=== PATIENT | female | born 1960 | race Caucasian/White ===

== ENCOUNTER 2017-01-11 09:51 | Observation (INO) | payer OTHER ==
[2017-01-11] VITALS (10 sets, daily range): BP systolic 108–154; BP diastolic 55–85; PULSE 43–69; RESP 16–20; TEMP 98.2–98.5; O2SAT 96–99
[~2017-01-11] VITALS: Ht 162.6 cm; Wt 79.0 kg
[~2017-01-11 09:51] MED LIST: BACT800T5 PO; CLEO300C2 PO; LIPI10TA PO
--- NOTE | 2017-01-11 10:03 | PD ---
HPI Chief Complaint: chest pain Time Seen by Provider: 10:03 Travel History International Travel<30 days: No Contact w/Intl Traveler<30days: No Traveled to known affect area: No History of Present Illness HPI 56-year-old female came to the emergency room with sudden onset chest pain while she was at work. Patient describes this pain as a heavy sensation on her chest with numbness going down her left arm. She says she's never had this kind of pain before. When it started it was 9 out of 10 that lasted for about 20 minutes. She took 1 baby aspirin that she had in her purse. No associated shortness of breath, diaphoresis or lightheadedness. Patient is a smoker and has been a smoker for many years. She also has history of high cholesterol and taking medications for that. She has never had a stress test in the past. Her grandfather and maternal and both had heart attack at the age of 40s to 50s. Currently patient says her pain is 1 out of 10. No signs of stable. No aggravating or relieving factors identified. [facility]LY [facility] Past Medical History Narrative Medical List of her past medical, surgical, social and family history is reviewed from the nursing note. Cancer: No Cardiovascular Problems: Yes (HIGH CHOLESTEROL) High Cholesterol: Yes Diabetes: No Glaucoma: No Hepatitis: No Hiatal Hernia: No Hypertension: No Thyroid Disease: No Past Surgical History Gynecologic Surgery: Yes (C SECTION X2, D&C) Hysterectomy: Yes Pacemaker: No Other Surgery: Yes Social History Alcohol Use: Yes (OCCAS) Tobacco Use: Yes (QUIT 02/21/09) Substance Use: No Allergies-Medications (Allergen,Severity, Reaction): Coded Allergies: latex (Unverified Allergy, Severe, DYSPNEA, SKIN BREAKDOWN, 10/05/16) Comments List of her allergies reviewed from the nursing note. Reported Meds & Prescriptions Reported Meds & Active Scripts Active Reported Atorvastatin (Atorvastatin Calcium) 10 Mg Tab 10 Mg PO HS Celexa (Citalopram Hydrobromide) 10 Mg Tab 10 Mg PO DAILY Narrative Medication List of her home medications reviewed from the nursing note. Review of Systems Except as stated in HPI: all other systems reviewed are Neg Cardiovascular: Positive: Chest Pain or Discomfort Physical Exam Narrative GENERAL: Awake, alert, anxious SKIN: Focused skin assessment warm/dry. HEAD: Atraumatic. Normocephalic. EYES: Pupils equal and round. No scleral icterus. No injection or drainage. ENT: No nasal bleeding or discharge. Mucous membranes pink and moist. NECK: Trachea midline. No JVD. CARDIOVASCULAR: Regular rate and rhythm. No murmur appreciated. RESPIRATORY: No accessory muscle use. Clear to auscultation. Breath sounds equal bilaterally. GASTROINTESTINAL: Abdomen soft, non-tender, nondistended. Hepatic and splenic margins not palpable. MUSCULOSKELETAL: No obvious deformities. No clubbing. No cyanosis. No edema. NEUROLOGICAL: Awake and alert. No obvious cranial nerve deficits. Motor grossly within normal limits. Normal speech. PSYCHIATRIC: Appropriate mood and affect; insight and judgment normal. Data Data Last Documented VS Orders Orders Electrocardiogram (01/11/17 10:24) Basic Metabolic Panel (Bmp) (01/11/17 10:24) Ckmb (Isoenzyme) Profile (01/11/17 10:24) Complete Blood Count With Diff (01/11/17 10:24) Magnesium (Mg) (01/11/17 10:24) Prothrombin Time / Inr (Pt) (01/11/17 10:24) Act Partial Throm Time (Ptt) (01/11/17 10:24) Troponin I (01/11/17 10:24) Chest, Single Ap (01/11/17 10:24) Ecg Monitoring (01/11/17 10:24) Bilateral Bp Monitoring (01/11/17 10:24) Iv Access Insert/Monitor (01/11/17 10:24) Oximetry (01/11/17 10:24) Oxygen Administration (01/11/17 10:24) Aspirin Chew (Aspirin Chew) (01/11/17 10:30) Sodium Chloride 0.9% Flush (Ns Flush) (01/11/17 10:30) D-Dimer (01/11/17 10:24) Admit Order (Ed Use Only) (01/11/17 11:32) Labs Laboratory Tests Test 01/11/17 10:35 White Blood Count 8.5 TH/MM3 Red Blood Count 4.67 MIL/MM3 Hemoglobin 14.1 GM/DL Hematocrit 41.3 % Mean Corpuscular Volume 88.3 FL Mean Corpuscular Hemoglobin 30.1 PG Mean Corpuscular Hemoglobin Concent 34.1 % Red Cell Distribution Width 13.9 % Platelet Count 223 TH/MM3 Mean Platelet Volume 10.5 FL Neutrophils (%) (Auto) 54.0 % Lymphocytes (%) (Auto) 39.3 % Monocytes (%) (Auto) 4.9 % Eosinophils (%) (Auto) 1.3 % Basophils (%) (Auto) 0.5 % Neutrophils # (Auto) 4.6 TH/MM3 Lymphocytes # (Auto) 3.3 TH/MM3 Monocytes # (Auto) 0.4 TH/MM3 Eosinophils # (Auto) 0.1 TH/MM3 Basophils # (Auto) 0.0 TH/MM3 CBC Comment DIFF FINAL Differential Comment Prothrombin Time 10.5 SEC Prothromb Time International Ratio 1.0 RATIO Activated Partial Thromboplast Time 27.8 SEC D-Dimer Quantitative (PE/DVT) 0.31 MG/L FEU Blood Urea Nitrogen 8 MG/DL Creatinine 0.76 MG/DL Random Glucose 107 MG/DL Calcium Level 8.9 MG/DL Magnesium Level 2.1 MG/DL Sodium Level 138 MEQ/L Potassium Level 3.7 MEQ/L Chloride Level 109 MEQ/L Carbon Dioxide Level 20.7 MEQ/L Anion Gap 8 MEQ/L Estimat Glomerular Filtration Rate 79 ML/MIN Total Creatine Kinase 76 U/L Troponin I LESS THAN 0.02 NG/ML MDM Medical Decision Making Medical Screen Exam Complete: Yes Emergency Medical Condition: Yes Medical Record Reviewed: Yes Interpretation(s) Twelve-lead EKG was reviewed by me. Normal sinus rhythm, normal axis, nonspecific ST-T wave changes, bradycardia. Heart rate of 56 bpm. Differential Diagnosis ACS, non-STEMI, PE Narrative Course 11:36 AM blood test results of back and within acceptable limits. Given her risk factors and age I would like to admit her to the chest pain center so that she can be evaluated by the pump tester to rule out ACS. Procedures EKG Prior to Arrival: No Diagnosis Primary Impression: Chest pain Qualified Codes: R07.9 - Chest pain, unspecified Admitting Information Admitting Physician Requests: Fidelia Arora MD Jan 11, 2017 10:03
[2017-01-11] MEDS ORDERED: CELE10TA PO (10:11)
[2017-01-11] MEDS ORDERED: ATOR10TA15 PO (10:11)
[2017-01-11] MEDS ORDERED: SODIUM CHLORIDE 0.9% FLUSH 10 ML FLUSH IVF PRN (10:30)
[2017-01-11] MEDS ORDERED: ASPIRIN 81 MG CHEW TAB PO ONE (10:30)
--- NOTE | 2017-01-11 10:47 | RADRPT ---
EXAM DATE/TIME: 01/11/2017 09:31 [place] COMPARISON: No previous studies available for comparison. INDICATIONS : Mid-sternal chest pains radiating into left shoulder. MEDICAL HISTORY : None. SURGICAL HISTORY : None. ENCOUNTER: Initial ACUITY: 1 day PAIN SCORE: 6/10 LOCATION: Right chest FINDINGS: Minimal left basilar airspace disease. Cardiomediastinal contours are within normal limits. Bony thor ax is intact. CONCLUSION: 1. Minimal left basilar airspace disease, likely atelectasis. Min Archuleta MD on January 11, 2017 at 10:45 Board Certified Radiologist. This report was verified electronically.
[2017-01-11 10:48] LABS: AUTOMATED NEUTROPHIL # 4.6 TH/MM3 (1.8-7.7); BASOPHIL % 0.5 % (0.0-2.0); EOSINOPHIL # 0.1 TH/MM3 (0-0.4); EOSINOPHIL % 1.3 % (0.0-4.0); HEMATOCRIT 41.3 % (35.0-46.0); HEMO FLAGS DIFF FINAL; LYMPH % 39.3 % (9.0-44.0); LYMPHOCYTE # 3.3 TH/MM3 (1.0-4.8); MEAN CELL VOLUME 88.3 FL (80.0-100.0); MEAN CORPUSCULAR HEMOGLOBIN 30.1 PG (27.0-34.0); MEAN CORPUSCULAR HGB CONC 34.1 % (32.0-36.0); MONO % 4.9 % (0.0-8.0); PLATELET COUNT 223 TH/MM3 (150-450); RED BLOOD COUNT 4.67 MIL/MM3 (4.00-5.30); RED CELL DISTRIBUTION WIDTH 13.9 % (11.6-17.2); WHITE BLOOD COUNT 8.5 TH/MM3 (4.0-11.0)
[2017-01-11 11:02] LABS: ANION GAP 8 MEQ/L (5-15); BICARBONATE 20.7 MEQ/L (21.0-32.0); BLOOD UREA NITROGEN 8 MG/DL (7-18); CHLORIDE 109 MEQ/L (98-107); GLOMERULAR FILTRATION RATE 79 ML/MIN (>89); MAGNESIUM 2.1 MG/DL (1.5-2.5); POTASSIUM 3.7 MEQ/L (3.5-5.1); SODIUM (NA) 138 MEQ/L (136-145)
[2017-01-11 11:09] LABS: CREATINE KINASE 76 U/L (26-192)
[2017-01-11 11:10] LABS: APTT (PATIENT) 27.8 SEC (24.3-30.1); PROTHROMBIN TIME - PATIENT 10.5 SEC (9.8-11.6)
[2017-01-11] MEDS ORDERED: ONDANSETRON HCL 4 MG/2 ML VIAL IV PUSH PRN (12:15)
[2017-01-11] MEDS ORDERED: RESP: ALBUTEROL 2.5 MG/IPRATROPIUM 0.5 MG NEB (PRN) INH (12:15)
[2017-01-11] MEDS ORDERED: ALPRAZolam 0.25 MG TAB PO PRN (12:15)
[2017-01-11] MEDS ORDERED: cloNIDine HCL 0.1 MG TAB PO PRN (12:15)
[2017-01-11] MEDS ORDERED: ACETAMINOPHEN 500 MG CPLT PO PRN (12:15)
[2017-01-11] MEDS ORDERED: SODIUM CHLORIDE 0.9% FLUSH 5 ML FLUSH IVF PRN (12:15)
[2017-01-11] MEDS ORDERED: ACETAMINOPHEN/HYDROcodone 325 MG/7.5 MG TAB PO PRN (12:15)
--- NOTE | 2017-01-11 12:20 | HHI.HP ---
[facility] Primary Care Physician Ludmila Yeung M.D. Chief Complaint Chest Pain History of Present Illness This is a 56-year-old female that presents to ED with history of hyperlipidemia , anxiety, and tobacco abuse with a complaint of chest discomfort that began this morning while in the meeting at work. She developed a discomfort just left of the sternum that she describes as "felt like something was going to burst." States" I was afraid to move read" she felt a little short of breath initially. After about a minute her symptoms changed to a dull ache. Initially an 8 out of 10 pain level. Now a mild discomfort that she describes as a dull ache. Found nothing to worsen or improve it. States she took an aspirin immediately. No nausea. Denies diaphoresis. Cannot recall ever having anything like this before. Cannot recall ever having a stress test or cardiac catheterization. Denies recent illness. Denies fevers or chills. Review of Systems General: Patient denies fevers, chills recent, and recent travel HEENT: Patient denies headache, sore throat, difficulty swallowing. Cardiovascular: Has the chest discomfort as mentioned above. Denies sensation of heart beating rapidly or irregularly. No syncope. Denies diaphoresis. Respiratory: She was short of breath. Denies inspirational chest discomfort. Denies coughing wheezing or hemoptysis. GI: Patient denies nausea, vomiting, diarrhea, abdominal pain, bloody stools. Musculoskeletal: Patient denies joint pain or edema. Denies calf pain or edema. Neurovascular: Patient denies numbness, tingling, weakness in extremities. Denies headache. Endocrine: Denies polyuria and polydipsia. Hematologic: Denies easy bruising. Skin: Denies rash or itching. Past Family Social History Allergies: Coded Allergies: latex (Unverified Allergy, Severe, DYSPNEA, SKIN BREAKDOWN, 10/05/16) Past Medical History Hyperlipidemia, anxiety, and tobacco abuse. Denies hypertension, diabetes, and known CAD. Past Surgical History Hysterectomy and 2 C-sections. Reported Medications Reported Meds & Active Scripts Active Reported Atorvastatin (Atorvastatin Calcium) 10 Mg Tab 10 Mg PO HS Celexa (Citalopram Hydrobromide) 10 Mg Tab 10 Mg PO DAILY Active Ordered Medications Current Medications Medications (Trade) Dose Ordered Sig/Nick Route Start Time Stop Time Status Last Admin (NS Flush) 2 ml UNSCH PRN IVF 01/11/17 10:30 (NS Flush) 2 ml UNSCH PRN IVF 01/11/17 12:15 UNV (NS Flush) 2 ml BID IVF 01/11/17 21:00 UNV (Tylenol) 500 mg Q4H PRN PO 01/11/17 12:15 UNV (Sorrento 7.5-325 Mg) 1 tab Q4H PRN PO 01/11/17 12:15 UNV (Zofran Inj) 4 mg Q6H PRN IV PUSH 01/11/17 12:15 UNV (Protonix) 40 mg DAILY PO 01/11/17 12:15 UNV (Aspirin) 325 mg DAILY PO 01/12/17 09:00 UNV (Xanax) 0.25 mg Q8H PRN PO 01/11/17 12:15 UNV (Duoneb Neb) 1 ampule Q4HR NEB PRN INH 01/11/17 12:15 UNV (Catapres) 0.1 mg Q4H PRN PO 01/11/17 12:15 UNV Family History Denies family history of CAD. Social History Patient smokes on average 1 pack of cigarettes daily for 30 years. Rarely has alcohol. Denies illicit drugs. Physical Exam Vital Signs Vital Signs Date Time Temp Pulse Resp B/P (MAP) Pulse Ox O2 Delivery O2 Flow Rate FiO2 01/11/17 10:43 136/72 (93) 01/11/17 10:28 99 Room Air 01/11/17 10:28 99 Room Air 01/11/17 10:06 58 16 140/76 (97) 99 01/11/17 09:53 98.5 69 16 154/85 (108) 99 Room Air Physical Exam GENERAL: This is a well-nourished, well-developed patient, in no apparent distress. Patient speaks in clear complete sentences. Patient is pleasant. HEENT: Head is atraumatic and normocephalic. Neck is supple without lymphadenopathy and trachea is midline. No JVD or carotid bruits. CARDIOVASCULAR: Regular rate and rhythm without murmurs, gallops, or rubs. RESPIRATORY: Clear to auscultation. Breath sounds equal bilaterally. No wheezes , rales, or rhonchi. Chest wall is tender however it does not reproduce the symptoms that brought her to the ED. No use of accessory muscles. GASTROINTESTINAL: Abdomen is nontender, nondistended. Abdomen soft. No obvious pulsatile mass or bruit. No CVA tenderness. Strong femoral pulses bilaterally. Normal bowel sounds in all quadrants. MUSCULOSKELETAL: Patient is moving upper and lower extremities freely. No calf tenderness or edema, no Homans sign. Strong pulses in upper and lower extremities. NEUROLOGICAL: Patient is alert and oriented. Cranial nerves 2-12 are grossly intact. No focal deficits and speech is clear. SKIN: No rash and turgor is normal. Laboratory Laboratory Tests Test 01/11/17 10:35 White Blood Count 8.5 Red Blood Count 4.67 Hemoglobin 14.1 Hematocrit 41.3 Mean Corpuscular Volume 88.3 Mean Corpuscular Hemoglobin 30.1 Mean Corpuscular Hemoglobin Concent 34.1 Red Cell Distribution Width 13.9 Platelet Count 223 Mean Platelet Volume 10.5 Neutrophils (%) (Auto) 54.0 Lymphocytes (%) (Auto) 39.3 Monocytes (%) (Auto) 4.9 Eosinophils (%) (Auto) 1.3 Basophils (%) (Auto) 0.5 Neutrophils # (Auto) 4.6 Lymphocytes # (Auto) 3.3 Monocytes # (Auto) 0.4 Eosinophils # (Auto) 0.1 Basophils # (Auto) 0.0 CBC Comment DIFF FINAL Differential Comment Prothrombin Time 10.5 Prothromb Time International Ratio 1.0 Activated Partial Thromboplast Time 27.8 D-Dimer Quantitative (PE/DVT) 0.31 Blood Urea Nitrogen 8 Creatinine 0.76 Random Glucose 107 Calcium Level 8.9 Magnesium Level 2.1 Sodium Level 138 Potassium Level 3.7 Chloride Level 109 Carbon Dioxide Level 20.7 Anion Gap 8 Estimat Glomerular Filtration Rate 79 Total Creatine Kinase 76 Troponin I LESS THAN 0.02 Result Diagram: 01/11/17 1035 01/11/17 1035 Imaging Last 48 hours Impressions Chest X-Ray 01/11/17 1024 Signed Impressions: Service Date/Time: Wednesday, January 11, 2017 09:31 - CONCLUSION: 1. Minimal left basilar airspace disease, likely atelectasis. Min Archuleta MD Course Initial EKG has sinus bradycardia rate of [address] segment depressions or elevations. Caprini VTE Risk Assessment Caprini VTE Risk Assessment: No/Low Risk (score <= 1) Caprini Risk Assessment Model Point Value = 1 Point Value = 2 Point Value = 3 Point Value = 5 Age 41-60 Minor surgery BMI > 25 kg/m2 Swollen legs Varicose veins or History of unexplained or recurrent spontaneous Oral contraceptives or hormone replacement Sepsis (< 1 month) Serious lung disease, including pneumonia (< 1 month) Abnormal pulmonary function Acute myocardial infarction Congestive heart failure (< 1 month) History of inflammatory bowel disease Medical patient at bed rest Age 61-74 Arthroscopic surgery Major open surgery (> 45 min) Laparoscopic surgery (> 45 min) Malignancy Confined to bed (> 72 hours) Immobilizing plaster cast Central venous access Age >= 75 History of VTE Family history of VTE Factor V Leiden Prothrombin [id number] Lupus anticoagulant Anticardiolipin antibodies Elevated serum homocysteine Heparin-induced thrombocytopenia Other congenital or acquired thrombophilia Stroke (< 1 month) Elective arthroplasty Hip, pelvis, or leg fracture Acute spinal cord injury (< 1 month) Prophylaxis Regimen Total Risk Factor Score Risk Level Prophylaxis Regimen 0-1 Low Early ambulation 2 Moderate Order ONE of the following: *Sequential Compression Device (SCD) *Heparin 5000 units SQ BID 3-4 Higher Order ONE of the following medications: *Heparin 5000 units SQ TID *Enoxaparin/Lovenox 40 mg SQ daily (WT < 150 kg, CrCl > 30 mL/min) *Enoxaparin/Lovenox 30 mg SQ daily (WT < 150 kg, CrCl > 10-29 mL/min) *Enoxaparin/Lovenox 30 mg SQ BID (WT < 150 kg, CrCl > 30 mL/min) AND/OR *Sequential Compression Device (SCD) 5 or more Highest Order ONE of the following medications: *Heparin 5000 units SQ TID (Preferred with Epidurals) *Enoxaparin/Lovenox 40 mg SQ daily (WT < 150 kg, CrCl > 30 mL/min) *Enoxaparin/Lovenox 30 mg SQ daily (WT < 150 kg, CrCl > 10-29 mL/min) *Enoxaparin/Lovenox 30 mg SQ BID (WT < 150 kg, CrCl > 30 mL/min) AND *Sequential Compression Device (SCD) Assessment and Plan Assessment and Plan * Chest pain: Patient will continue to have serial cardiac enzymes and EKGs for ruling out purposes. She will be seen by Dr. Narayan cardiology in the chest pain center. She likely will have a Oscar protocol ETT if she rules out with serial cardiac enzymes and EKGs overnight. She'll be discharged home if his stress test was nonischemic with instructions to follow-up with PCP. Return to ED for interval issues. * Hyperlipidemia: Continue current medication. * Anxiety: Continue medication. Have when necessary Xanax. * Tobacco abuse: Patient has been counseled on importance of smoking cessation. Patient is stable at this time. She is agreeable to this plan. Michael Carney Jan 11, 2017 12:20
[2017-01-11] MEDS: PANTOPRAZOLE SOD 40 MG DELAYED RELEASE TAB PO SCH (12:42)
[2017-01-11 14:40] LABS: CREATINE KINASE 65 U/L (26-192)
--- NOTE | 2017-01-11 16:54 | EKG ---
Date Performed: 01/11/2017 Time Performed: 10:10:46 PTAGE: 56 years EKG: SINUS BRADYCARDIA LOW QRS VOLTAGE IN PRECORDIAL LEADS BORDERLINE ECG NO PREVIOUS TRACING DOCTOR: Shila Narayan Interpretating Date/Time 01/11/2017 16:52:56
--- NOTE | 2017-01-11 16:57 | EKG ---
Date Performed: 01/11/2017 Time Performed: 13:21:50 PTAGE: 56 years EKG: SINUS BRADYCARDIA LOW QRS VOLTAGE IN PRECORDIAL LEADS BORDERLINE ECG Since PREVIOUS TRACING , no significant change noted PREVIOUS TRACIN01/11/2017 10.10 DOCTOR: Shila Narayan Interpretating Date/Time 01/11/2017 16:55:40
[2017-01-11 17:40] LABS: CREATINE KINASE 68 U/L (26-192)
[2017-01-11] MEDS: SODIUM CHLORIDE 0.9% FLUSH 5 ML FLUSH IVF SCH (21:10)
[2017-01-12 00:03] VITALS: PULSE 47
[2017-01-12 00:10] VITALS: BP 97/55; PULSE 48; RESP 18; TEMP 97.8; O2SAT 96
[2017-01-12 04:01] VITALS: PULSE 43
[2017-01-12 04:03] VITALS: BP 108/59; PULSE 51; RESP 18; TEMP 98; O2SAT 9
[2017-01-12 07:46] VITALS: PULSE 46
[2017-01-12 07:51] VITALS: BP 105/77; PULSE 59; RESP 16; TEMP 98.3; O2SAT 97
--- NOTE | 2017-01-12 08:36 | HHI.DCPOC ---
Discharge Care Plan Diagnosis: (1) Hyperlipidemia (2) Tobacco abuse (3) Anxiety (4) Chest pain Goals to Promote Your Health * To prevent worsening of your condition and complications * To maintain your health at the optimal level Directions to Meet Your Goals Take your medications as prescribed Follow your dietary instruction Follow activity as directed Keep your appointments as scheduled Take your immunizations and boosters as scheduled If your symptoms worsen call your PCP, if no PCP go to Urgent Care Center or Emergency Room Smoking is Dangerous to Your Health. Avoid second hand smoke Call the 24-hour hour crisis hotline for domestic abuse at Michael Carney Jan 12, 2017 08:36
[2017-01-12] MEDS: SODIUM CHLORIDE 0.9% FLUSH 5 ML FLUSH IVF SCH (09:00)
[2017-01-12] MEDS ORDERED: ASPIRIN 325 MG TAB PO SCH (09:00)
[2017-01-12] MEDS: PANTOPRAZOLE SOD 40 MG DELAYED RELEASE TAB PO SCH (09:00)
--- NOTE | 2017-01-12 13:00 | EKG ---
Date Performed: 01/11/2017 Time Performed: 17:00:41 PTAGE: 56 years EKG: SINUS BRADYCARDIA LOW QRS VOLTAGE IN PRECORDIAL LEADS BORDERLINE ECG PREVIOUS TRACING : 01/11/2017 13.21 Since previous tracing, no significant change noted DOCTOR: Catrachito Chambers Interpretating Date/Time 01/12/2017 12:59:26
--- NOTE | 2017-01-12 13:03 | TR ---
Date Performed: 01/12/2017 Time Performed: 08:04:05 DOCTOR: Catrachito Chambers DRUG LIST: CLINICAL HISTORY: CHEST PAIN REASON FOR TEST: REASON FOR ENDING: OBSERVATION: CONCLUSION: TATYANA PROTOCOL. NO CP. TEST STOPED AFTER EXCEEDING GOAL HR SECONDARY TO SOB AND LEG FATIGUE.Maximum IC=931 % Max HR Achieved=99.0% Maximum WA=666/72 Total Exercise Time=7:00 COMMENTS: Patient exercised using the Tatyana protocol. No electrocardiographic changes were seen to suggest ischemia. Hemodynamic response to exercise was normal. No significant arrhythmia was prese nt.
== END 2017-01-12 09:20 | disposition home or self-care (01) ==
LOC: NEPC 09:51 → NEDA 11:33 → NEPFCDU 13:42
PROVIDERS: ADMIT Internal Medicine Interventional Cardiology; ATTEND Internal Medicine Interventional Cardiology
DX: R07.89 Other chest pain (principal); R20.0 Anesthesia of skin; R00.1 Bradycardia, unspecified; E78.00 Pure hypercholesterolemia, unspecified; F41.9 Anxiety disorder, unspecified; F17.200 Nicotine dependence, unspecified, uncomplicated; Z79.899 Other long term (current) drug therapy; Z82.49 Family history of ischemic heart disease and other diseases of the circulatory system
CPT/HCPCS: 71010; 80048; 82550; 83735; 84484; 85025; 85379; 85610; 85730; 93005; 93017; 99285; G0378